=== PATIENT | female | born 1995 | race Caucasian/White ===

== ENCOUNTER 2023-04-29 08:11 | Day surgery (SDC) | payer OTHER, MEDICAID, SELFPAY ==
[2023-04-21 15:27] VITALS: BMI 28.1
[2023-04-29] VITALS (11 sets, daily range): BP systolic 100–125; BP diastolic 62–82; PULSE 88–102; RESP 16–20; TEMP 36.2–36.7; O2SAT 93–100; BMI 28.1
--- NOTE | 2023-04-29 | PATH_ITS ---
[facility] Accession Number: [id number] No. of containers..01 Tissue . 01 Material submitted: . fallopian tube - BILATERAL FALLOPIAN TUBES . 01 Diagnosis: A. Bilateral Fallopian Tubes, Bilateral Salpingectomy: Cross-sections of bilateral fallopian tubes within normal limits. Focal benign paratubal cyst. Negative for dysplasia and malignancy. MRV 05/04/2023 0822 Local . 01 Electronically signed: . Ramila Fallon MD, Pathologist NPI- [id number] . 01 Gross description: . The specimen is received in formalin and labeled with the patient's name, , and bilateral fallopian tubes, and consists of two unoriented, fimbriated fallopian tubes measuring 7.1 x 0.7 cm and 6.5 x 0.7 cm, respectively. Both tubes have violaceous, smooth serosa with cystic structures ranging from 0.1 cm to 0.7 cm in greatest dimension, filled with clear serous fluid. Sectioning reveals unremarkable stellate lumens. Barrel Assembly Inspector sections to include one-half of bisected fimbriae and cross sections are submitted as follows: A1: Longer fallopian tube. A2: [place] fallopian tube. ([id number]) /FRR 04/30/2023 1630 Local . 01 Pathologist provided ICD-10: Z30.2 . 01 CPT . 659482 Specimen Comment: A courtesy copy of this report has been sent to [phone] Performed at: 01 [facility] [address] [place] [address] [address], [place], [place] [id number] MD Rodney White MD Phone: [phone]
--- NOTE | 2023-04-29 07:55 | P.HP_ITS ---
History of Present Illness History of Present Illness Date Patient Seen: 04/29/23 Time Patient Seen: 08:55 [address]: [facility] Narrative: Darling is a 27-year-old nulligravida, LMP a couple of weeks ago, who presents requesting sterilization. She has never had children and has never had a desire for children. In addition she is been diagnosed with mixed connective tissue disorder and is concerned that that diagnosis would make hazardous for both herself and for any child she was carrying. In addition the patient dates primarily women and has no desire to have a family with children even if she finds a lifelong partner/spouse. Patient's menses are regular and moderate in flow. She denies intermenstrual spotting. Pap smear is current (2020) and normal. After discussing the option of sterilization with the patient, she states that she has held this desire for many years but was always afraid that she would be deny the opportunity to be sterilized without first having had one or more children. She appears mature and well reasoned in her decisions to have the sterilization procedure done and was both attentive as well as responsive throughout our discussions. She has previously executed a HHS Form 687 more than 30 day prior to her scheduled laparoscopic bilateral salpingectomy for which she is admitted at this time. [facility] Medical History (Updated 04/21/23 @ 15:30 by Yahaira Moreno RN) Bipolar disorder Muscle degeneration Chronic fatigue MCTD (mixed connective tissue disease) (~1996) PTSD (post-traumatic stress disorder) (~2013) Depression (~2013) History of bipolar disorder (~2016) Anxiety (~2013) Migraines (~2018) Painful menstrual periods (~2012) Irregular menstrual cycle (~2020) Heavy menstrual period (~2012) Surgical History (Updated 03/24/23 @ 18:47 by Lis Zhou) Anesthesia [place] teeth removed (~2018) Family History (Updated 03/24/23 @ 18:50 by Lis Zhou) Father Hypertension Hyperlipidemia Mother Multiple sclerosis Hyperthyroidism Hyperlipidemia Grandfather Multiple organ failure Grandmother Cerebral aneurysm Grandfather Cancer Grandmother Pneumonia Social History Smoking Status: Never smoker alcohol intake: current Meds Home Medications and Allergies Home Medications Medication Instructions Recorded Confirmed Type lamotrigine 100 mg tablet 300 mg PO DAILY 01/26/23 01/26/23 History levothyroxine 50 mcg/mL oral 50 mcg PO DAILY 03/22/23 03/22/23 History solution Allergies Allergy/AdvReac Type Severity Reaction Status Date / Time No Known Drug Allergies Allergy Unverified 03/22/23 14:37 Review of Systems Review of Systems Narrative: Problem-specific ROS positives included in HPI Exam Const General: cooperative and comfortable Nutritional Appearance: average body habitus Orientation: alert and oriented x3 HENMT Head: normal to inspection, atraumatic and abrasion Ears: hearing grossly normal bilaterally Face and sinus: face symmetric Eyes General: appearance normal, both eyes and all related structures Conjunctivae: conjunctivae normal Sclera: sclerae normal EOM: EOM intact bilaterally Neck Neck: normal visual inspection Resp Effort & Inspection: normal respiratory effort and able to speak in complete sentences Auscultation: clear to auscultation bilaterally Cardio Rate: regular rate Rhythm: regular rhythm Heart Sounds: S1 normal, S2 normal and no murmurs GI Inspection: normal to inspection Palpation: soft and no hepatosplenomegaly External Female Exam: other (No significant bleeding noted) Extrem General: no calf tenderness Psych Appearance: grossly normal Mental Status: mental status grossly normal Speech and Movement: speech and movement normal Mood: congruent mood Affect: normal affect Attitude: cooperative Thought Process: normal Thought Content: normal Judgment: judgment good Assessment & Plan Assessment and plan (1) Request for sterilization: Status: Acute Plan Patient counselled re: alternatives, risks, benefits, and potential complications associated with laparoscopic bilateral salpingectomy. She is fully aware that this is a procedure which will result in her permanently and ir reversibly being unable to bear children without benefit of assisted reproductive technology. She also understands that there is a small (1-05/999) chance the procedure failing to prevent and should occur the risk ectopic gestation is significant. Full understanding of the above, a written consent was executed, signed, and witnessed this date. Time Spent With Patient Time with patient: less than 30 minutes
--- NOTE | 2023-04-29 08:09 | PM.PREOP ---
Pre-operative Note COVID-19 COVID-19 status: Not tested Interval Note History & Physical reviewed/Exam performed by Physician: Yes Changes to H&P: No
[2023-04-29] MEDS: SCOPOLAMINE 1 PATCH TOP (08:35)
[2023-04-29] MEDS: ACETAMINOPHEN IV 1,000 MG/100 ML VIAL 400 MG IV (08:35)
[2023-04-29] MEDS: LACTATED RINGERS 1,000 ML 42 ML IV (08:40)
[2023-04-29] MEDS: BUPIVACAINE 0.5% (PF) 30 ML, EPINEPHrine 0.15 MG INJ (09:57)
--- NOTE | 2023-04-29 10:11 | SUR.OPER ---
Lithotomy on padded OR bed, head on pillow, arms secured on padded arm boards at <90 degrees abduction. Legs secured in padded yellow fins stirrups.
--- NOTE | 2023-04-29 10:23 | P.OP_ITS ---
Operative Date/Time/Diagnoses Date of procedure: 04/29/23 Time of procedure: 09:45 Pre-op diagnosis: Request for sterilization Post-op diagnosis: same Procedure & Clinicians Procedure: Procedures Operation Date: 04/29/23 09:15 Actual Procedure Side Surgeon p Laparoscopic Salpingectomy Bilateral Ross Felix MD Indications: Darling is a 27-year-old nulligravida, LMP a couple of weeks ago, who presents requesting sterilization. She has never had children and has never had a desire for children. In addition she is been diagnosed with mixed connective tissue disorder and is concerned that that diagnosis would make hazardous for both herself and for any child she was carrying. In addition the patient dates primarily women and has no desire to have a family with children even if she finds a lifelong partner/spouse. Patient's menses are regular and moderate in flow. She denies intermenstrual spotting. Pap smear is current (2020) and normal. After discussing the option of sterilization with the patient, she states that she has held this desire for many years but was always afraid that she would be deny the opportunity to be sterilized without first having had one or more children. She appears mature and well reasoned in her decisions to have the sterilization procedure done and was both attentive as well as responsive throughout our discussions. She has previously executed a HHS Form 687 more than 30 day prior to her scheduled laparoscopic bilateral salpingectomy for which she is admitted at this time. Surgeon: Ross Felix Anesthesia Type: General Operative Notes Findings: Normal female pelvis. The appendix appears to be normal and the upper is also normal to laparoscopic inspection. Closure Type: primary Specimen(s): left tube and right tube Estimated blood loss (mL): 5 Blood products transfused: none Procedure in detail: With the patient under satisfactory general anesthesia in the modified dorsal lithotomy position, the perineum, vagina, and abdomen were prepped and draped for IUD removal and laparoscopic bilateral salpingectomy. A pre-surgical safety time-out was then taken in accordance with [facility] Main OR protocols. The umbilicus was then infiltrated with 0.5% Marcaine with epinephrine and 1 cm vertical incision was made in the inferior aspect of the umbilicus. Veress needle was used to insufflate the abdomen with carbon dioxide and once appropriately insufflated, 5 mm bladeless trocar and sleeve were inserted through the incision. Proper placement of the sleeve was confirmed with laparoscopic visualization and insufflation of the abdomen continued. A 2nd and 3rd 5 mm laparoscopic port were placed in the right and left mid quadrants using a similar technique and using a 3 puncture technique, the abdomen and pelvis were visualized with the findings as noted above. The distal aspect of the left fallopian tube was then grasped with a grasping forceps and using a Power Seal device, fimbria ovarica was coagulated and divided the dissection using the Po wer Seal continuing across the mesosalpinx to the cornua where the base fallopian tube was coagulated and divided. The left fallopian tube was then removed through one of the ports and submitted pathologic specimen. Attention was then turned to the right adnexa with distal tube grasped with a grasping forcep. The Power Seal device was then used to coagulate fimbria ovarica and the dissection was carried across the mesosalpinx to the cornua where the fallopian tube on the right side was amputated at the cornua following coagulation proximal tube the Power Seal device. Pelvis was inspected and there were no abnormalities noted following bilateral salpingectomy. The pneumoperitoneum was then vented and the ports removed from the abdominal wall. Port incisions were then closed with 4-0 Monocryl using inverted interrupted stitches and skin glue was applied. Appropriate dressings were then applied, patient was awakened, and transferred to the PACU for a period of observation after having tolerated the procedure well. Complications: none Post-operative Condition: stable Disposition: PACU Plan for aftercare: Routine postoperative care with follow-up planned for 2 weeks postop
[2023-04-29] MEDS: OXYCODONE IR 5 MG TABLET PO (10:36)
[2023-04-29] MEDS: KETOROLAC 30 MG/ML VIAL IV (10:57)
== END 2023-04-29 11:55 | disposition home or self-care (01) ==
PROVIDERS: Referring Provider Obstetrics & Gynecology; Visit Provider Obstetrics & Gynecology
PROC: 0UT74ZZ Resection of Bilateral Fallopian Tubes, Percutaneous Endoscopic Approach (ICD-10-PCS; CPT 58661; principal; 2023-04-29 09:15)
DX: Z30.2 Encounter for sterilization (principal); N83.8 Other noninflammatory disorders of ovary, fallopian tube and broad ligament
CPT/HCPCS: 58661; 81025; J0136; J0171; J1100; J1885; J2250; J2405; J2704; J3010